=== PATIENT | male | born 1985 | race Caucasian/White ===

== ENCOUNTER 2019-01-20 19:39 | Emergency (ER) | payer OTHER ==
[~2019-01-20] VITALS: Ht 149.9 cm; Wt 54.0 kg
[2019-01-20 19:43] VITALS: BP 159/98; Ht 149.9 cm; Wt 54.0 kg
== END 2019-01-20 20:44 | disposition home or self-care (01) ==
LOC: ED 19:39
DX: L03.011 Cellulitis of right finger (principal); Z98.890 Other specified postprocedural states
CPT/HCPCS: J2001

== ENCOUNTER 2019-12-08 10:32 | Emergency (ER) | payer OTHER ==
[~2019-12-08] VITALS: Ht 149.9 cm; Wt 51.7 kg
[2019-12-08 11:16] VITALS: Ht 149.9 cm; Wt 51.7 kg
[2019-12-08 13:02] VITALS: BP 139/88
== END 2019-12-08 13:02 | disposition home or self-care (01) ==
LOC: ED 10:32
DX: B02.9 Zoster without complications (principal); L73.9 Follicular disorder, unspecified; Z98.890 Other specified postprocedural states